=== PATIENT | male | born 1945 | race Caucasian/White ===

== ENCOUNTER 2018-05-27 13:52 | Inpatient (IN) | payer MEDICARE, BC ==
[~2018-05-27] VITALS: Ht 193 cm; Wt 156.5 kg
[~2018-05-27 13:52] MED LIST: ASPIRIN EC81 MG PO; ATENOLOL50 MG PO; CYCLOBENZAPRINE10 MG PO; DHEA50 MG PO; FLAX SEED OIL1000 MG PO; GLUCOSAMINE &1 EACH PO; HYDROCHLOROTHIA25 MG PO; IRBESARTAN75 MG PO; KRILL OIL500 MG PO; L-ARGININE1000 MG PO; LOTREL 10-40 M1 EACH PO; MOBIC15 MG PO; PERCOCET 5-3251 EACH PO; TART CHERRY CA1 EACH PO; TORSEMIDE20 MG PO; TRAMADOL HCL50 MG PO; TRIPLE OMEGA C400 MG PO; ULORIC80 MG PO; VIT C; VYTORIN 10-201 EACH PO; ZINC50 M1 PO
--- NOTE | 2018-05-28 14:57 | NUR ---
PATIENT AND HIS MEY HERE TODAY FOR PREADMISSION APPOINTMENT. HE IS SCHEDULED TO HAVE A RIGHT TOTAL HIP ARTHROPLASTY DONE ON06/03/18. HE LIVES IN [place] AND HAS RECENTLY HAD A RAMP BUILT GOING INTO THE HOME. THERE IS NO STEPS INSIDE THE HOME. THEY HAVE A WALK IN SHOWER WITH GRAB BARS AND A HAND HELD SHOWER HEAD. HE WILL LOOK INTO OBTAINING A SHOWER BENCH AND ALREADY HAS A FRONT WHEELED WALKER. HE IS NOT SCHEDULED FOR A PREOP PHYSICAL THERAPY APPOINTMENT. HIS WILL BE HERE TO TRANSPORT HIM HOME WHEN HE IS DISCHARGED. THIS INFORMATION WILL BE SENT TO DR KENNEY'S OFFICE AND CASE MANAGEMENT FOR FUTHER FOLLOW UP.
[2018-05-29] MEDS ORDERED: COZAAR50 MG PO (08:36)
[2018-05-29] MEDS ORDERED: VITAMIN D32000 UNI1 PO (08:36)
[2018-05-29] MEDS ORDERED: FOLIC ACID1 MG PO (08:37)
[2018-05-29] MEDS ORDERED: VITAMIN E200 UNI2 PO (08:37)
[2018-05-29] MEDS ORDERED: VITAMIN B-121000 MCG PO (08:37)
[2018-05-29] MEDS ORDERED: NASACORT10.8 ML NAS (08:38)
[2018-05-29] MEDS ORDERED: CELEBREX100 MG PO (08:38)
[2018-05-29] MEDS ORDERED: PROVENTIL HFA6.7 GM INH (08:38)
--- NOTE | 2018-06-03 06:45 | NUR ---
PATIENT READY FOR SURGERY, HIP X-RAY DONE. PRE-OP MEDICATIONS GIVEN.
--- NOTE | 2018-06-03 09:49 | NUR ---
06/03/18 0949 MaiaSarika 0934-PATIENT ARRIVED TO PACU ON 10L MASK RR EVEN. PATIENT REACTIVE TO VOICE OPENS EYES DENIES PAIN OR NAUSEA. PATIENT ABLE TO MOVE HIPS AND WIGGLE TOES. DRESSING TO RIGHT HIP CDI ICE APPLIED. 0940-PATIENT APPEARS TO HAVE 4+PITTING EDEMA TO RIGHT FOOT USED DOPPER TO AUSCULTATE PULSE UNABLE TO PALPATE. AUSCULTED RIGHT PEDAL PULSE AND TIBIAL PULSE. 3+EDEMA TO LEFT FOOT. ABDUCTOR PILLOW IN PLACE. 0945-PATIENT AWAKE WEANED TO RA 97% RR EVEN. DENIES PAIN OR NAUSEA. TRANXEMIC ACID STARTED. PATIENT DOZES BACK TO SLEEP.
--- NOTE | 2018-06-03 10:38 | NUR ---
PT ARRIVED TO FLOOR AT 1030 WITH DI LARRY. PATIENT AWAKE SITTING UP IN BED. RIGHT HIP DRESSING C/D/I. PEDAL PULSES 1+ FAINT/THREADY BILAT. EDEMA BILAT LE. PITTING. NO NAUSEA. SIPPING WATER NOW. SCDs ON BILAT LE. NO FEELING IN FEET, BUT FEELING AT KNEE LEVEL.
--- NOTE | 2018-06-03 11:50 | NUR ---
PATIENT CALLS TO USE THE URINAL. PATIENT DID NOT VOID. RN NOTIFIED. CALL LIGHT WITHIN REACH. NO OTHER NEEDS AT THIS TIME.
--- NOTE | 2018-06-03 12:01 | NUR ---
PATIENT UNABLE TO VOID. BLADDER SCANNED 619ML. DR KENNEY CALLED. HE SAYS "GREAT, KEEP AN EYE ON IT". WILL MONITOR AND CONTINUE TO ATTEMPT VOIDS.
--- NOTE | 2018-06-03 12:55 | NUR ---
PT HAS NOT ATTEMPTED TO VOID SINCE NOON. ENCOURAGED TO TRY Q30M. WILL CONTINUE TO MONITOR. ICE WATER PROVIDED. SALINE LOCKED PATIENT. TOLERATED LUNCH WELL.
--- NOTE | 2018-06-03 13:39 | NUR ---
PT RESTING UPRIGHT IN BED, HIS ANTONY IN . PT STATED HE HAD NO PAIN NOW AND WAS COMFORTABLE. 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 EXTENDED A BLESSING, WILL CONTINUE TO FOLLOW
--- NOTE | 2018-06-03 13:48 | NUR ---
BLADDER SCANNED PATIENT FOR 791ML. UNABLE TO VOID. FEELS URGE TO GO, BUT UNABLE. CALLED DR KENNEY. ORDERED HER CATHETER AND REMOVE AT 0600 TOMORROW.
--- NOTE | 2018-06-03 14:50 | NUR ---
HER CATHETER INSERTED BY STUDENT NURSE. 800ML IMMEDIATELY DRAINED FROM BLADDER. CLEAR YELLOW URINE.
--- NOTE | 2018-06-03 15:54 | NUR ---
pt up with physical therapists now. tolerating very well.
--- NOTE | 2018-06-03 17:47 | NUR ---
PATIENT SITING UP IN CHAIR. VITAL SIGNS AND I&O DONE. ICE WATER GIVEN. CALL LIGHT WITHIN REACH. NO OTHER NEEDS AT THIS TIME.
--- NOTE | 2018-06-03 18:13 | NUR ---
PT HAS NO PAIN. SITTING UP IN RECLINER NOW.
--- NOTE | 2018-06-03 18:20 | NUR ---
ARRIVED TO FLOOR AT 1030. TYLENOL AND GABAPENTIN SCHEDULED. OXYCODONE AVAILABLE PRN. PAIN WELL CONTROLLED TODAY. WORKED WITH PHYSICAL THERAPY. TOLERATED WELL. 1PA FWW. DRESSING ON RIGHT HIP C/D/I. ICE TO RIGHT HIP. HER INSERTED AT 1430 FOR RETENTION OF 800ML. TO BE TAKEN OUT AT 0600 TOMORROW. KEEP HOB ELEVATED 30 DEGREES. SALINE LOCKED. TOLERATING REGULAR DIET. ANCEF GIVEN 1 OF 3.
--- NOTE | 2018-06-03 18:57 | NUR ---
CHARGE NURSE REPORT RECEIVED FROM KENDY SOLITARIO. PT UP IN HIS RECLINER, WATCHING TV. NO NEEDS REQUESTED AT THIS TIME. CALL LIGHT WITH IN REACH.
--- NOTE | 2018-06-03 19:30 | NUR ---
BEDSIDE REPORT RECEIVED FROM KENDY HUDDLESTON. 1P SBA TO BED FROM CHAIR, GAIT STEADY. PT DENIES ANY PAIN AT THIS TIME. SPO2 99% ON RA, HR [address] CONT[address] IN PL[address]. DRESSING CLEAN DRY AND INTACT, SMALL AMT OF SHADOWING NOTED ON MEPILEX. HER DRAINING. PT GIVEN NEW ICE PACKS FOR HIP, PILLOW IN PLACE FOR WEDGE. CALL LIGHT IN REACH, NO ADDL. REQUESTS AT THIS TIME.
--- NOTE | 2018-06-03 21:30 | NUR ---
IN PT ROOM FOR ASSESSMENT, CALL OUT OPERATOR. PT SLEEPING, AWAKENS EASILY TO VOICE. PULSES STRONG BLE, BUE, 1+ EDEMA BILATERALLY LOWER EXTREMITIES, PT STATES CHRONIC. SENSATION INTACT. DRESSING CDI MEPILEX AND OP SITE. ICE PACKS IN PLACE R HIP. SCDS ON. PT RATES PAIN 3/10, DENIES NEED FOR PRN PAIN MEDICATION AT THIS TIME, STATES "MORE OF A DISCOMFORT". HER DRAINING WNL. CALL LIGHT IN REACH.
--- NOTE | 2018-06-03 21:51 | NUR ---
V/S AND I&O DONE AND CHARTED. ICE WATER REFILLED. NO OTHER NEEDS AT THIS TIME.
--- NOTE | 2018-06-03 23:16 | NUR ---
IN PT ROOM FOR ANTIBIOTIC ADMINISTRATION. PT SLEEPING, AWAKENS EASILY, DENIES PAIN AT THIS TIME. NO REQUESTS. CALL LIGHT IN REACH. SCDS, HIP WEDGE IN PLACE.
--- NOTE | 2018-06-04 01:35 | NUR ---
IN PT ROOM FOR SCHEDULED PAIN MEDICATION ADMINISTRATION. PT RATES PAIN "DISCOMFORT", 3/10 IN RIGHT HIP. NEW ICE PACKS PLACED ON R HIP. MODERATE EDEMA NOTED BLE, PEDAL PULSES PALPABLE, SENSATION INTACT BLE. DRESSING C/D/I R HIP, SHADOWING UNCHANGED FROM PREVIOUS ASSESSMENT ON MEPILEX. SCDS, HIP WEDGE IN PLACE. VSS. HER EMPTIED. PT GIVEN ICE WATER. PT APPEARS TO BE GOING BACK TO SLEEP RN LEAVES ROOM, EYES CLOSED. CONT. PULSE OX IN PLACE.
--- NOTE | 2018-06-04 03:29 | NUR ---
CHECKED ON PT, APPEARS TO BE SLEEPING, EYES CLOSED, BREATHING NON-LABORED. RR 16. HER DRAINING YELLOW URINE. LIGHTS OFF IN ROOM.
--- NOTE | 2018-06-04 05:02 | NUR ---
PT SLEPT WELL THROUGHOUT SHIFT. PAIN WELL CONTROLLED WITH SCHEDULED PO PAIN MEDICATIONS, "DISCOMFORT" REPORTED. DRESSING CDI R HIP WITH SMALL AMT OF SHADOWING UNCHANGED THROUGHOUT SHIFT. CSM INTACT BLE, 1+ PITTING EDEMA BLE. HIP WEDGE, SCDS, HEEL PROTECTORS, ICE IN PLACE. 1PA WITH FWW FOR AMBULATION. PT USING CALL LIGHT APPROPRIATELY. TOLERATING REGULAR DIET WELL, DENIES NAUSEA. CONT. PULSE OX IN PLACE, SATURATIONS WNL THROUGHOUT SHIFT. HOME MEDICATIONS GIVEN TO PHARMACY SCHEDULER TO PLACE IN SAFE.
--- NOTE | 2018-06-04 06:30 | NUR ---
HER CATHETER D/C'D WNL AT 0600. DRESSING ON R HIP C/D/I, SHADOWING UNCHANGED. PT ABLE TO AMBULATE MULTIPLE LAPS AROUND ROOM INDEPENDENTLY WITH FWW. PT NOW IN CHAIR, GIVEN COFFEE AND ICE WATER REQUESTED. PT RATES PAIN 4/10 WITH AMBULATION, "STIFF, SORE". PRN AND SCHEDULED PO PAIN MEDICATIONS ADMINISTERED. CALL LIGHT NEXT TO PT. NO REQUESTS AT THIS TIME. VSS.
--- NOTE | 2018-06-04 07:42 | NUR ---
ASSESSMENT AND MEDICATION DUE. ASSESSMENT DONE. DENIES PAIN, REPORTS "STIFFNESS" IN HIP, STATES WALKING DECREASES FEELING OF STIFFNESS. DENIES NAUSEA. EDEMA IN BLE. REPORTS AMBULATING THIS AM. MEDICATIONS GIVEN (SEE MAR). CALL LIGHT WITHIN REACH. NO FURTHER REQUESTS AT THIS TIME.
--- NOTE | 2018-06-04 08:10 | OR ---
[facility] [address], [place] [address] Signed DATE OF OPERATION: 06/03/2018 SURGEON: Chris Fernández MD PREOPERATIVE DIAGNOSIS: End-stage osteoarthritis, right hip. POSTOPERATIVE DIAGNOSIS: End-stage osteoarthritis, right hip. PROCEDURE: Right total hip arthroplasty. ANESTHESIA: Spinal with sedation. SPECIMENS AND COMPLICATIONS: There were no specimens or complications. BLOOD LOSS: About 150 mL. IMPLANTS: Troy sector cup with a Gription size 60 with two 25 mm screws. There was a neutral 36 liner. On the femoral side, there was a size 7 Perkins stem with a high offset Perkins stem with a +5 36 mm head. WHAT WAS DONE: The patient was taken to the operating room. After anesthesia was administered by the Anesthesia Service, the patient was placed in the left lateral decubitus position and prepped and draped in a routine sterile fashion. A straight lateral approach was made to the hip through skin and subcutaneous tissue. Hemostasis was achieved with electrocautery. The deep fascia was incised in line with the skin incision and a Charnley self-retaining retractor was placed. The anterior one-third of the gluteus medius was elevated off the anterior aspect of the greater trochanter and retracted medially. An anterior and superior capsulectomy was then performed and the hip was dislocated. The femoral neck was then resected with the motorized saw and the head and neck fragment was delivered out of the wound. We then placed a self-retaining Meyerding retractor to retract the proximal femur posteriorly. We were then able to visualize the acetabulum. Using electrocautery, we removed the contents of the pulvinar along with Electronically Signed By: CHRIS FERNÁNDEZ MD 06/04/18 0810 PATIENT NAME: Melia WOOTEN OPERATIVE REPORT DATE OF : 49 REPORT #: [id number] PHYSICIAN: CHRIS FERNÁNDEZ MD PCP: MAVIS DAVEY DO REPORT IS CONFIDENTIAL AND NOT TO BE RELEASED WITHOUT AUTHORIZATION [facility] [address], [place] [address] Signed the remaining portion of the acetabular labrum. The femoral head sized to a 57 mm. We therefore began reaming with a 47 mm Reamer medialized the acetabulum and then reamed up until we had a pretty good interference fit at 59. We put in a 59 trial cup. We were happy with alignment, position, and stability. We therefore copiously irrigated, meticulously dried the acetabulum and impacted a 60 mm cup. We augmented the fixation with 225 mm screws. A neutral 36 liner was then impacted. We then rotated the proximal femur up into the incision and prepared in the standard way with a box chisel, reamer and then approaches. We then broached up to a size 7, which seemed quite solid that gave us good proximal fill. We used a standard offset +1.5 head and reduced the hip. X-rays were taken. We still had a little deficit of leg length and clinically the hip still felt a little loose. We therefore dislocated the hip, removed all the trials, and impacted a high offset size 7 stem. We put a +5 head on the Stone taper, and relocated the hip. This appeared to restore our leg length that gave dramatically improved stability. The wound was then gently irrigated and closed in a standard fashion. A sterile dressing was applied and he was awakened taken to recovery room where he arrived in stable condition. Counts were correct and antibiotic protocols were followed. Chris Fernández MD WFB/MODL /[id number] Copies: ~ Electronically Signed By: CHRIS FERNÁNDEZ MD 06/04/18 0810 PATIENT NAME: Melia WOOTEN OPERATIVE REPORT DATE OF : 49 REPORT #: [id number] PHYSICIAN: CHRIS FERNÁNDEZ MD PCP: MAVIS DAVEY DO REPORT IS CONFIDENTIAL AND NOT TO BE RELEASED WITHOUT AUTHORIZATION
[2018-06-04] MEDS ORDERED: OXYCODONE HCL5 MG PO (08:59)
[2018-06-04] MEDS ORDERED: ULTRAM50 MG PO (09:00)
[2018-06-04] MEDS ORDERED: XARELTO10 MG PO (09:01)
[2018-06-04] MEDS ORDERED: TYLENOL325 M1 PO (09:02)
--- NOTE | 2018-06-04 09:38 | NUR ---
pt REPORTED PAIN 01/05. PRN PAIN MED GIVEN (SEE MAR). PIV DC'D PER PROTOCOL BY RADHA STALLINGS. AT CHAIR SIDE. pt IN CHAIR, FINISHED WITH BREAKFAST. WILL BE GETTING DRESSED WITH ASSISTANCE FROM . WILL CALL IF HE NEEDS ASSISTANCE. CALL LIGHT WITHIN REACH. NO FURTHER REQUESTS AT THIS TIME.
--- NOTE | 2018-06-04 11:19 | NUR ---
ROUNDED ON pt. REPORTED VOIDING, THIS RN FOUND 100 ML IN URINAL. TIDIED BEDSIDE TABLE. pt SITTING IN CHAIR WITH SCDS ON. CALL LIGHT WITHIN REACH. NO FURTHER REQUESTS AT THIS TIME.
--- NOTE | 2018-06-04 11:49 | NUR ---
DISCHARGE INSTRUCTIONS GIVEN TO pt AND . VERBALIZE UNDERSTANDING AND STATE ALL QUESTIONS HAVE BEEN ANSWERED. PAIN REASSESSED 09/07. LUNCH ARRANGED. WILL DISCHARGE AFTER LUNCH. CALL LIGHT WITHIN REACH.
--- NOTE | 2018-06-04 12:15 | NUR ---
MEDICATION GIVEN (SEE MAR). pt REPORTED 4/10 PAIN, REFUSED PRN PAIN MEDS. DRESSED. VSS. CALL LIGHT WITHIN REACH. AT BEDSIDE
--- NOTE | 2018-06-04 12:27 | NUR ---
RONR HAD JUST BEEN IN, PT STATED HE IS READY TO GO! HOPES TO BE DC'D TOAN LUNCH. SEEMED TO APPRECIATE HAVING SIS PRESLEY VISIT. EXTENDED A BLESSING, WILL FOLLOW NEEDED
== END 2018-06-04 12:35 | disposition home or self-care (01) | DRG 470 ==
LOC: DSVR 06-03 05:30 → MS 06-03 05:30
PROVIDERS: ADMIT Orthopaedic Surgery
PROC: 0SR90JZ Replacement of Right Hip Joint with Synthetic Substitute, Open Approach (ICD-10-PCS; principal; 2018-06-03 06:45)
DX: M16.11 Unilateral primary osteoarthritis, right hip (principal); I10 Essential (primary) hypertension; E78.5 Hyperlipidemia, unspecified; M1A.9XX0 Chronic gout, unspecified, without tophus (tophi)
CPT/HCPCS: 36415; 51798; 72170; 73501; 73502; 80048; 85025; 94762; 97110; 97116; 97161; C1776; G8978; G8979; G8980; J0690; J1100; J1885; J2250; J2274; J2405; J2704; J2765; J3010; J7120